=== PATIENT | male | born 2000 | race Caucasian/White ===

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

== ENCOUNTER 2019-03-13 04:01 | Emergency (ER) | payer OTHER ==
[~2019-03-13] VITALS: Ht 170.2 cm; Wt 61.6 kg
[~2019-03-13 04:01] MED LIST: NAPR-985 PO
[2019-03-13 04:04] VITALS: BP 145/80; PULSE 65; RESP 18; Ht 170.2 cm; Wt 61.6 kg
[2019-03-13] MEDS ORDERED: BEN25 PO (04:24)
[2019-03-13] MEDS ORDERED: PRED20TA PO (04:24)
[2019-03-13] MEDS ORDERED: FAMOTIDINE 20 MG TAB PO ONE (04:30)
[2019-03-13] MEDS ORDERED: DEXAMETHASONE 10 MG/ML 1 ML INJ IM ONE (04:30)
[2019-03-13] MEDS ORDERED: DIPHENHYDRAMINE 25 MG CAP PO ONE (04:30)
--- NOTE | 2019-03-13 05:01 | ERD ---
ER Documentation Chief Complaint Chief Complaint RASH ON BODY/ LIMBS X'S 3 HOURS HPI 18-year-old male presenting with rash to body, legs and arms x3 hours.'s been very itchy. He has never had this before and has not taken medications for symptoms. He denies any facial swelling, troubles breathing or trouble swallo wing. He has not taken medications for his symptoms. Denies any fevers. Denies other medical problems. NKDA. Surgical history denies. Social history denies ROS All systems reviewed and are negative except as per history of present illness. Medications Home Meds Active Scripts Prednisone* (Prednisone*) 20 Mg Tab, 40 MG PO DAILY for 4 Days, TAB Prov:CATHI MOREJON PA-C 03/13/19 Diphenhydramine Hcl* (Benadryl*) 25 Mg Cap, 25 MG PO Q6, #30 CAP Prov:CATHI MOREJON PA-C 03/13/19 Naproxen* (Naprosyn*) 500 Mg Tablet, 500 MG PO BID PRN for PAIN AND/OR INFLAMMATION, #15 TAB Prov:HOLLY LYONS PA-C 04/12/17 Allergies Allergies: Coded Allergies: No Known Allergy (Unverified , 03/19/13) PMhx/Soc History of Surgery: No Anesthesia Reaction: No Hx Neurological Disorder: No Hx Respiratory Disorders: Yes (ASTHMA) Hx Cardiac Disorders: No Hx Psychiatric Problems: No Hx Miscellaneous Medical Probl: No Hx Alcohol Use: No Hx Substance Use: No Hx Tobacco Use: No Smoking Status: Never smoker FmHx Family History: No diabetes, No coronary disease, No other Physical Exam Vitals Vital Signs Date Temp Pulse Resp B/P (MAP) Pulse Ox O2 O2 Flow FiO2 Time Delivery Rate 03/13/19 99.1 65 18 145/80 100 04:04 (101) Physical Exam GENERAL: The patient is well-appearing, well-nourished, in no acute distress HEENT: Atraumatic. Conjunctivae are pink. Pupils equal, round, and reactive to light. There is no scleral icterus. Tympanic membranes clear bilaterally. Oropharynx clear. CHEST: Clear to auscultation bilaterally. There are no rales, wheezes or rhonchi. HEART: Regular rate and rhythm. No murmurs, clicks, rubs or gallops. SKIN: Urticarial rash noted to arms and legs. No pustules or vesicles. Results 24 hrs Current Medications Medications Dose Sig/Lizz Start Time Status Last (Trade) Ordered Route PRN Stop Time Admin Dose Reason Admin 10 mg ONCE ONCE 03/13/19 DC 03/13/19 Dexamethasone IM 04:30 04:28 (Decadron) 03/13/19 04:31 25 mg ONCE ONCE 03/13/19 DC 03/13/19 Diphenhydrami PO 04:30 04:28 ne HCl 03/13/19 04:31 (Benadryl) Famotidine 20 mg ONCE ONCE 03/13/19 DC 03/13/19 (Pepcid) PO 04:30 04:28 03/13/19 04:31 Procedures/MDM ER course: Decadron, Benadryl given ED. MDM: 18-year-old male presenting with rash. I have low suspicion for bacterial or viral rash. Patient's exam is concerning for allergic reaction. I have low suspicion for anaphylaxis. Patient is discharged with supportive medications and told to follow-up with primary care within 1 to 2 days for close evaluation. Patient is told symptoms change or worsen to return immediately to the ER. All questions answered at discharge Departure Diagnosis: Primary Impression: Hives Condition: Stable Patient Instructions: Hives Referrals: [facility] YOU HAVE RECEIVED A MEDICAL SCREENING EXAM AND THE RESULTS INDICATE THAT YOU DO NOT HAVE A CONDITION THAT REQUIRES URGENT TREATMENT IN THE EMERGENCY DEPARTMENT. FURTHER EVALUATION AND TREATMENT OF YOUR CONDITION CAN WAIT UNTIL YOU ARE SEEN IN YOUR DOCTORS OFFICE WITHIN THE NEXT 1-2 DAYS. IT IS YOUR RESPONSIBILITY TO MAKE AN APPOINTMENT FOR FOLOW-UP CARE. IF YOU HAVE A PRIMARY DOCTOR --you should call your primary doctor and schedule an appointment IF YOU DO NOT HAVE A PRIMARY DOCTOR YOU CAN CALL OUR PHYSICIAN REFERRAL HOTLINE AT IF YOU CAN NOT AFFORD TO SEE A PHYSICIAN YOU CAN CHOSE FROM THE FOLLOWING [facility] [address] [facility] [address] [facility] [address] [facility] [address] [facility]. [facility] [address] [facility]. [facility] [address] Additional Instructions: FOLLOW UP WITH YOUR PRIMARY CARE PHYSICIAN TOMORROW.Return to this facility if you are not improving as expected. CATHI MOREJON PA-C Mar 13, 2019 05:01
== END 2019-03-13 04:35 | disposition home or self-care (01) ==
LOC: FTE 04:01
DX: L50.9 Urticaria, unspecified (principal); J45.909 Unspecified asthma, uncomplicated
CPT/HCPCS: 96372; J1100; Z7502; Z7610